=== PATIENT | female | born 2000 | race Caucasian/White ===

== ENCOUNTER 2025-08-13 23:29 | Emergency (ER) | payer MEDICAID ==
[~2025-08-13] VITALS: Ht 149.9 cm; Wt 40.0 kg
--- NOTE | 2025-08-13 23:36 | Physician Documentation ---
History of Present Illness ~ General Stated Complaint: RACING HEART,SOB Time Seen by MD: 23:36 OK to notify your PCP?: Yes Source: patient, family Mode of Arrival: POV Exam Limitations: no limitations History of Present Illness Initial Comments 24 year old female patient presents to the ED accompanied by male partner and her 8 month old baby. Patient states for the past week she has been short of breath, "shaky", and has been dealing with heart palpations. She has no past medical history of any kind. She is currently breast feeding. She denies any lower extremity swelling, fever, or cough. She notes that she dealt with some heart palpitations as a teenager but believes this was related to anxiety. She has received fluids in the ED prior to my evaluation and states she is feeling "better already". Male partner accompanying her thinks it is likely that she is dehydrated. Patient denies any other associated symptoms. Patient denies any other alleviating or exacerbating factors at this time. Medication Reconciliation Allergies: Coded Allergies: Penicillins (Verified Allergy, Unknown, 08/13/25) Past Medical History Past Medical History: No Pertinent History Past Surgical History: noncontributory Lives with: Family Lives In: Home Review of Systems All Other Systems at this time: Reviewed and Negative Physical Exam Physical Exam Physical Exam General Appearance: WDWN, No Distress, Cooperative, Awake Head: No Trauma. Scalp Normal Eyes: Lids normal, conjunctiva normal ENT: Mucous membranes normal, facial bones normal, lips normal, oropharynx normal Neck: Normal active FROM, non-tender with ROM, no meningeal signs, No JVD Back: Normal active FROM, non-tender with ROM, no CVAT Resp: Normal resp rate, normal flow, lungs clear to auscultation, no resp distress, no retractions Heart: Tachycardic. Abd: Soft, non-tender, no guarding, no rebound, no mass Musc/Skel: No chest wall tenderness, Normal ROM UE's and LE's, No acute bone/joint abnormality or tenderness Skin: Normal color, no petechia/purpura, no rash Extremities: No edema Neuro: Motor 5/5 & Symmetric Bilat, CN 2-12 grossly intact and symmetric bilat. Oriented x4, speech normal. Psych: Mood & Affect: Normal, Depressed: 0, Awareness & insight normal Progress Results/Orders Results/Orders Orders - JACLYN DALE MD Cta Chest Pe (08/14/25 ) Completed Orders - JACLYN DALE MD Normal Saline 1000ml (0.9% Sodium Chlori (08/13/25 23:55) Cta Chest Pe (08/14/25 ) Iohexol 350mg/Ml 100ml (Omnipaque 350mg/ (08/14/25 01:28) Hcg, Ur Ql (08/14/25 01:36) Normal Saline 500ml Iv Soln (Sodium Chlo (08/14/25 04:00) Vital Signs 08/13/25 08/14/25 08/14/25 08/14/25 23:43 01:10 02:30 04:25 Temp 97.6 98.6 98.6 98.6 Pulse 124 130 128 114 Resp 17 18 18 18 B/P (MAP) 131/77 118/72 (87) 116/72 (87) 123/74 (90) Pulse Ox 99 99 99 08/14/25 04:39 Temp 98.6 Pulse 113 Resp 16 B/P (MAP) 119/70 Pulse Ox 99 Laboratory Tests Test 08/13/25 23:42 08/13/25 23:44 08/14/25 01:34 08/14/25 01:35 White Blood Count 5.9 Red Blood Count 4.44 Hemoglobin 12.3 Hematocrit 37.0 Mean Corpuscular Volume 83.4 Mean Corpuscular Hemoglobin 27.8 Mean Corpuscular Hemoglobin Concent 33.3 Red Cell Distribution Width 12.7 Platelet Count 252 Mean Platelet Volume 8.1 Neutrophils (%) (Auto) 49.1 Lymphocytes (%) (Auto) 34.0 Monocytes (%) (Auto) 15.3 H Eosinophils (%) (Auto) 1.2 Basophils (%) (Auto) 0.4 Neutrophils # (Auto) 2.9 Lymphocytes # (Auto) 2.0 Monocytes # (Auto) 0.9 Eosinophils # (Auto) 0.1 Basophils # (Auto) 0.0 CBC Comment Differential Total Cells Counted 100 Neutrophils % (Manual) 59.0 Lymphocytes % (Manual) 25.0 Monocytes % (Manual) 15.0 H Eosinophils % (Manual) 1.0 Platelet Estimate Normal Red Blood Cell Morphology Normal Basophilic Stippling D-Dimer 0.51 H D-Dimer Comment Sodium Level 143 Potassium Level 3.6 Chloride Level 108 H Carbon Dioxide Level 26.2 Anion Gap 9 Blood Urea Nitrogen 18 Creatinine 0.44 Estimated GFR/1.73 m2 > 90 BUN/Creatinine Ratio 40.9 H Glucose Level 105 H Calcium Level 9.1 Troponin I High Sensitivity 5 5 Albumin 3.2 L Chemistry Comments Troponin I High Sens Percent Delta 0 Troponin I Hi Sens Absolute Change 0 Urine HCG, Qualitative Negative Test 08/14/25 02:45 Troponin I High Sensitivity 5 Troponin I High Sens Percent Delta 0 Troponin I Hi Sens Absolute Change 0 EKG/XRAY/CT/US/VASC/MRI EKG : Intepreting Monitor?: No Additional Comment 1137: Dr. Dale interpreted the EKG to show rate of 134, right axis deviation, non-specific t-wave changes septal/laterally, abnormal EKG. Chest X-Ray : Interpreted By: self, radiologist Views: 1 VIEW Additional Comments [id number]: Dr. Dale independently reviewed the 1 view chest x-ray to show normal heart and normal lungs. Medical Decision Making Additional information obtaine: other Findings Other Differential Diagnosis Medical decision makin-year-old female presents with palpitations and shortness of breath, currently 8-month-old baby, reports she feels dehydrated and has not been drinking enough fluids, patient's EKG showed sinus tachycardia, no emergent electrolyte abnormalities, pulmonary embolus in the differential, D-dimer was elevated CT scan shows no evidence of pulmonary embolus, no dissection, no pneumonia no infectious pulmonary issue, after hydration patient's pulse did improve but was still somewhat tachycardic in with a pulse between 100-110, patient feeling significantly better okay for discharge with close follow up, discussed with patient if issue continues she can discuss with her doctor Holter monitoring, endocrinology testing including thyroid panel, etcetera; no arrhythmia, no [facility] COURSE -I have reviewed the triage note. History obtained from patient and significant other at bedside -All Labs, if applicable, independently reviewed by me I checked in EMR for old Records Admission considered but patient is significantly improved with IV fluids, no need for anticoagulation, no evidence of pulmonary embolus Laboratory and radiology testing considered but deemed not necessary during this current emergency department visit: Lower extremity ultrasound Treatment/therapeutic interventions considered but deemed not necessary during this emergency department visit: IV antibiotics Repeat Evaluation: Heart rate 106 Additional REPEAT EVALUATION:Results and plan of care discussed with patient, patient understands and is agreeable to plan and disposition. Limited: (2 points from category 1 or one discussion with independent historian). Moderate: one of the following (3 points from category 1, or independent interpretations of tests performed by another physician/QHP: (ct,ecg,rad u tz,rhythm strip,or comparing xray to prior), or discussion of tests or management with other professionals (not including [facility] ER doc/PA or family members.) High: (2 of 3 from : category 1 (3 points), independent interpretation of tests performed by another physician/QHP, and discussion of tests or management). Prior [facility] ER notes reviewed: Category 1: Number of Tests ordered or reviewed: 3 Number of Independent Historians: 2 Non [facility] ER notes reviewed: None. Category 2: I independently interpreted the serum testing, EKG Category 3: Discussion with other professionals: 2 [employer] Problems related to: [ ] Challenges with access to Primary Care or Outpatient Speciality Care [ ] Psychosocial circumstances such as mental health issues [ ] Social environment: such as violence or substance abuse [ ] Housing and economic circumstances: such as homelessness [ ] Employment and unemployment: such as recently loss of employment [ ] Occupational exposures or injuries: [ ] Accessing ED outside of normal PCP hours [ ] Language barrier: [ ] Primary support group, including family circumstances: Portions of this chart may have been created with [employer] voice recognition software. Occasional wrong-word or sound-alike substitutions may have occurred due to the inherent limitations of voice recognition software. Please read the chart carefully and recognize, using context, where these substitutions have occurred. Departure Disposition: HOME / SELF CARE / HOMELESS Impression: Primary Impression: Palpitations Condition: Stable Discharge Instructions: Palpitations, [id number] Referrals: NO PRIMARY CARE PROVIDER (PCP) Comments your primary care doctor Education Educated: Patient, Family Educated regarding: diagnosis, treatment Signature Scribe Signature: Scribed for Jaclyn Dale MD by Lamar Hernandez . 08/14/25 01:08 Attestation: The note accurately reflects work and decisions made by me.JACLYN Hurst MD, MD Aug 13, 2025 23:36 LAMAR GARCIA Aug 14, 2025 01:01
--- NOTE | 2025-08-13 23:43 | ELECTROCARDIOGRAPH REPORT ---
[facility] Test Date: 2025-08-13 Test Time: 23:37:31 Pat Name: CAROLINA RAMIREZ Department: EMERGENCY ROOM Patient ID: [facility]-[id number] Room: Gender: F Legal Editor: : 2000 Requested By: MICHAEL MARCUM Order Number: [id number] Reading MD: Dr. Hiren Solis Measurements Intervals Hunt Rate: 134 P: 116 NC: 104 QRS: 131 QRSD: 79 T: 192 QT: 293 QTc: 438 Interpretive Statements Right and left arm electrode reversal, interpretation assumes no reversal Sinus tachycardia Right axis deviation Borderline Q waves in inferior leads Abnormal T, consider ischemia, diffuse leads Baseline wander in lead(s) II,aVF,V3 Electronically Signed On 08-16-2025 21:15:[address] Hiren Solis Please click the below link to view image of tracing.
[2025-08-14] LABS: MEAN PLATELET VOLUME 8.1 FL (7.4-10.4); RED CELL DISTRIBUTION WIDTH 12.7 % (11.5-14.5)
[2025-08-14 00:15] LABS: CREATININE 0.44 MG/DL (0.40-0.90); TOTAL CARBON DIOXIDE 26.2 MMOL/L (24-32); eCRCL 122 ML/MIN; eGFR > 90 ML/MIN
--- NOTE | 2025-08-14 00:25 | RADIOLOGY REPORT ---
CHEST RADIOGRAPH INDICATION: SOB TECHNIQUE: Single frontal view of the chest was obtained COMPARISON: None FINDINGS: Lines and Tubes: None Lungs: Clear Pleura: No effusion. No pneumothorax. Cardiomediastinal contours: Unremarkable Bones: Unremarkable IMPRESSION: 1. No acute disease.
[2025-08-14 00:27] LABS: EOSINOPHILS % (MANUAL) 1.0 % (0-6); LYMPHOCYTES % (MANUAL) 25.0 % (21-51); MONOCYTES % (MANUAL) 15.0 % (2-12); NEUTROPHILS % (MANUAL) 59.0 % (42-75); PLATELET ESTIMATE NORMAL
[2025-08-14] MEDS: normal saline 1000ml 1,000 ML IV ONE (00:45)
[2025-08-14 01:48] LABS: URINE HCG NEGATIVE (NEG)
--- NOTE | 2025-08-14 03:17 | RADIOLOGY REPORT ---
CTA Chest with intravenous contrast INDICATION: sob COMPARISON: DI CHEST,SINGLE VIEW on DOS: 08/13/25 TECHNIQUE: Multidetector spiral CTA of the chest was performed of the chest with intravenous contrast. PULMONARY ANGIOGRAPHY PROTOCOL was utilized using a bolus- tracking technique centered on the main pulmonary artery. Axial, coronal and sagittal multiplanar and MIP reformats were performed. Radiation Dose : 1. Chest: CTDI volume is 15.51 mGy. Dose-length product is 250.53 mGy*cm The dose indicators for CT are the volume Computed Tomography (CT) Dose Index (CTDIvol) and the Dose Length Product (DLP), and are measured in units of mGy and mGy-cm, respectively. These indicators are not patient dose, but values generated from the CT scanner acquisition factors. The report includes radiation exposure data for exposures received during this examination. FINDINGS: Pulmonary artery: No pulmonary embolism. Lower neck: Normal thyroid. Lungs: No focal consolidation, pleural effusion or pneumothorax. Heart/Vascular Structures: Normal heart size. No pericardial effusion. Lymph Nodes: No adenopathy Musculoskeletal: No acute osseous abnormality. Soft tissues: Normal. Upper abdomen: Limited portions of the upper abdomen are unremarkable. IMPRESSION: 1. No pulmonary embolism. 2. No acute thoracic finding.
[2025-08-14] MEDS: normal saline 500ml IV soln 500 ML IV ONE (04:25)
--- NOTE | 2025-08-14 04:27 | Physician Documentation ---
History of Present Illness ~ General Chief Complaint: Palpitations Stated Complaint: RACING HEART,SOB Time Seen by MD: 23:36 Source: patient, family Mode of Arrival: POV Exam Limitations: no limitations History of Present Illness Initial Comments Disregard this note, there is already a note for this patient Medication Reconciliation Allergies: Coded Allergies: Penicillins (Verified Allergy, Unknown, 08/13/25) Past Medical History Past Medical History: No Pertinent History Past Surgical History: noncontributory Lives with: Family Lives In: Home Physical Exam Physical Exam Vital Signs: Temperature: 98.6, Source: Oral, Heart Rate: 130, Respiratory Rate: 18, BP: 118/72, Pulse Oximetry: 99, Weight: 40.000 Progress Results/Orders Results/Orders Orders - JACLYN FITCH MD Cta Chest Pe (08/14/25 ) Completed Orders - JACLYN FITCH MD Normal Saline 1000ml (0.9% Sodium Chlori (08/13/25 23:55) Cta Chest Pe (08/14/25 ) Iohexol 350mg/Ml 100ml (Omnipaque 350mg/ (08/14/25 01:28) Hcg, Ur Ql (08/14/25 01:36) Normal Saline 500ml Iv Soln (Sodium Chlo (08/14/25 04:00) Vital Signs 08/13/25 08/14/25 08/14/25 08/14/25 23:43 01:10 02:30 04:25 Temp 97.6 98.6 98.6 98.6 Pulse 124 130 128 114 Resp 17 18 18 18 B/P (MAP) 131/77 118/72 (87) 116/72 (87) 123/74 (90) Pulse Ox 99 99 99 08/14/25 04:39 Temp 98.6 Pulse 113 Resp 16 B/P (MAP) 119/70 Pulse Ox 99 Laboratory Tests Test 08/13/25 23:42 08/13/25 23:44 08/14/25 01:34 08/14/25 01:35 White Blood Count 5.9 Red Blood Count 4.44 Hemoglobin 12.3 Hematocrit 37.0 Mean Corpuscular Volume 83.4 Mean Corpuscular Hemoglobin 27.8 Mean Corpuscular Hemoglobin Concent 33.3 Red Cell Distribution Width 12.7 Platelet Count 252 Mean Platelet Volume 8.1 Neutrophils (%) (Auto) 49.1 Lymphocytes (%) (Auto) 34.0 Monocytes (%) (Auto) 15.3 H Eosinophils (%) (Auto) 1.2 Basophils (%) (Auto) 0.4 Neutrophils # (Auto) 2.9 Lymphocytes # (Auto) 2.0 Monocytes # (Auto) 0.9 Eosinophils # (Auto) 0.1 Basophils # (Auto) 0.0 CBC Comment Differential Total Cells Counted 100 Neutrophils % (Manual) 59.0 Lymphocytes % (Manual) 25.0 Monocytes % (Manual) 15.0 H Eosinophils % (Manual) 1.0 Platelet Estimate Normal Red Blood Cell Morphology Normal Basophilic Stippling D-Dimer 0.51 H D-Dimer Comment Sodium Level 143 Potassium Level 3.6 Chloride Level 108 H Carbon Dioxide Level 26.2 Anion Gap 9 Blood Urea Nitrogen 18 Creatinine 0.44 Estimated GFR/1.73 m2 > 90 BUN/Creatinine Ratio 40.9 H Glucose Level 105 H Calcium Level 9.1 Troponin I High Sensitivity 5 5 Albumin 3.2 L Chemistry Comments Troponin I High Sens Percent Delta 0 Troponin I Hi Sens Absolute Change 0 Urine HCG, Qualitative Negative Test 08/14/25 02:45 Troponin I High Sensitivity 5 Troponin I High Sens Percent Delta 0 Troponin I Hi Sens Absolute Change 0 Medical Decision Making Additional information obtaine: other Findings other Differential Diagnosis disregard this chart Departure Time of Disposition: 04:25 Disposition: 01 HOME / SELF CARE / HOMELESS Impression: Primary Impression: Palpitations Additional Impression: Dyspnea Qualified Codes: R06.02 - Shortness of breath Condition: Stable Discharge Instructions: Palpitations, [id number] Referrals: NO PRIMARY CARE PROVIDER (PCP) Comments Follow up with your primary care doctor in 2-3 days for further evaluation Education Educated: Patient, Family Educated regarding: diagnosis, treatment Signature Scribe Signature: xx Attestation: xx JACLYN FITCH MD Aug 14, 2025 04:27
[2025-08-14 04:39] VITALS: BP 119/70; PULSE 113; RESP 16; TEMP 98.6; O2SAT 99
== END 2025-08-14 04:40 | disposition home or self-care (01) ==
LOC: ER 23:30
DX: R00.2 Palpitations (principal); F41.9 Anxiety disorder, unspecified; Z88.0 Allergy status to penicillin
CPT/HCPCS: 36415; 71045; 71275; 80048; 81025; 84484; 85007; 85025; 85379; 93005; 96360; 99285; J7030; J7040; Q9967; 96361